=== PATIENT | female | born 1960 | race Caucasian/White ===

== ENCOUNTER 2016-09-17 08:14 | Emergency (ER) | payer BC ==
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
[2016-09-17 09:39] LABS: Hematocrit 39 % (35-47); Hemoglobin 12.7 g/dl (12.0-16.0); Mean Corpuscular HGB Conc 33 g/dl (31-36); Mean Corpuscular Hemoglobin 30 pg (27-31); Mean Corpuscular Volume 91 fL (80-97); Mean Platelet Volume 8 um3 (7.4-10.4); Red Blood Count 4.28 10^6/ul (4.0-5.4); Red Cell Distribution Width 14 % (10.5-15); White Blood Count 5.3 10^3/ul (3.5-10.8)
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
[2016-09-17 09:49] LABS: BUN/Creatinine Ratio 21.7 (8-20); Calcium 8.9 mg/dL (8.6-10.3); EGFR African American 91.1 (>60); EGFR Non-African American 70.9 (>60); Potassium 4.4 mmol/L (3.5-5.0); Total Bilirubin 0.4 mg/dL (0.2-1.0)
[2016-09-17] MEDS ORDERED: Dexamethasone IV* 4 MG/ML 5 ML VIAL (20 MG) IVPB ONE (11:01)
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
--- NOTE | 2016-09-17 11:28 | RAD ---
Indication: Fall, chest pain. 2 views of the chest demonstrate no mediastinal shift. Heart is of normal size and configuration. Lung erazo appear clear. IMPRESSION: No active cardiopulmonary disease is identified.
[2016-09-17 11:34] VITALS: BP 118/96
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
== END 2016-09-17 12:10 | disposition home or self-care (01) ==
LOC: ED 08:14
DX: S12.501A Unspecified nondisplaced fracture of sixth cervical vertebra, initial encounter for closed fracture (principal); S12.600A Unspecified displaced fracture of seventh cervical vertebra, initial encounter for closed fracture; S00.81XA Abrasion of other part of head, initial encounter; R07.9 Chest pain, unspecified; M25.512 Pain in left shoulder; M25.511 Pain in right shoulder; Y93.55 Activity, bike riding; Y92.89 Other specified places as the place of occurrence of the external cause
CPT/HCPCS: 36415; 70450; 71020; 72125; 80053; 85025; 99283; J1100

== ENCOUNTER 2017-12-13 06:26 | Day surgery (SDC) | payer BC ==
[~2017-12-13 06:26] MED LIST: Buffered Lidocaine 0.9% SYRIN* 5 ML/SYR SYRINGE INTRADERM ONE; Famotidine IV* 10 MG/ML 2 ML (20 mg) IV ONE
[2017-12-13] MEDS ORDERED: Clindamycin 900 MG/D5W BAG(*) 900 MG/50 ML BAG IVPB ONE (06:47)
[2017-12-13] MEDS ORDERED: Famotidine IV* 10 MG/ML 2 ML (20 mg) ONE (06:47)
[2017-12-13] MEDS ORDERED: ROPIVACAINE 5 MG/ML 30 ML BTL (0.5%) ONE (07:28)
[2017-12-13] MEDS ORDERED: Lidocaine 1% INJ* 10 MG/ML 30 ML SDV ONE (07:28)
[2017-12-13] MEDS ORDERED: fentaNYL* 50 MCG/ML 2 ML VIAL (100 MCG VIAL) ONE (07:30)
[2017-12-13] MEDS ORDERED: Midazolam* 1 MG/ML 5 ML VIAL (5 MG) ONE (07:30)
[2017-12-13] MEDS ORDERED: DiMENhydriNATE IV* 50 MG/ML VIAL IV PUSH PRN (07:34)
[2017-12-13] MEDS ORDERED: Acetaminophen TAB* 325 MG PO PRN (07:34)
[2017-12-13] MEDS ORDERED: Naloxone* 0.4 MG/ML 1 ML VIAL IV PRN (07:34)
[2017-12-13] MEDS ORDERED: Dexamethasone IV* 4 MG/ML 1 ML (4 MG) ONE (07:48)
[2017-12-13] MEDS ORDERED: Ketorolac INJ* 30 MG/ML 1 ML VIAL ONE (08:30)
[2017-12-13] MEDS ORDERED: Ondansetron INJ* 2 MG/ML VIAL ONE (08:30)
[2017-12-13] MEDS ORDERED: Propofol* 10 MG/ML 20 ML BTL IV PUSH ONE (08:30)
[2017-12-13] MEDS ORDERED: Lidocaine 2% PF * 5 ML VIAL ONE (08:30)
[2017-12-13 09:19] VITALS: BP 92/65
--- NOTE | 2017-12-14 01:22 | OP ---
DATE OF OPERATION: 12/13/17 - [facility] DATE OF : 58 SURGEON: Sharif Espinoza DPM THREAD CHECKER: None. ANESTHESIA: MAC with local. PRE-OP DIAGNOSIS: Painful hallux rigidus, right great toe joint. POST-OP DIAGNOSIS: Painful hallux rigidus, right great toe joint. OPERATIVE PROCEDURE: Cheilectomy, right great toe joint. PATHOLOGY: Degenerative bone. HEMOSTASIS: Pneumatic ankle tourniquet. ESTIMATED BLOOD LOSS: Less than 10 cc. INDICATIONS: The patient with chronic increasing pain stiffness and bone spur proliferation about the right great toe joint with significant decrease in range of motion and pain while walking and wearing shoes. The patient had previous surgery years ago. The pain has returned. She opts for surgery at this time to attempt to decrease the pain, improve range of motion and improve her function. DESCRIPTION OF PROCEDURE: The patient was brought to the operating room and placed on the operating table in supine position. The anesthesia department administered IV sedation and a peripheral nerve block was performed at the right foot with 1:1 mixture of 1% lidocaine plain and 0.5% ropivacaine plain. The right foot was then prepped and draped in the usual fashion. The right foot was exsanguinated with an Esmarch bandage and pneumatic ankle tourniquet was inflated to 250 mmHg about a well-padded right ankle. Attention was directed to the dorsal medial aspect of the right great toe joint where previous surgical scar was noted and this was used as an incision line as well. This was deepened into the subcutaneous tissues, re- establishing tissue planes. There was expected fibrosis with adhesions from previous surgery years ago. Dissection was carried down to the capsule and a linear capsular and periosteal incision was made and freed off the underlying osseous attachments to allow for exposure of the great toe joint. There was noted to be hypertrophic bone at the medial, dorsal and lateral aspect of the great toe joint at both the first metatarsal head as well as the base of the proximal phalanx. Using a rongeur and sagittal saw, hypertrophic bone was resected. This was sent off the field as specimen. Next, the McGlamry elevator was used to free plantar adhesions as there was virtually no motion available at the sesamoid apparatus. This allowed for release of the adhesions and there was noted immediately to be an increase in range of motion. The cartilage surfaces were inspected and the sesamoid apparatus in the plantar aspect of the first metatarsal head grossly had only mild evidence of thinning of the cartilage, however, more central and dorsal, there was partial and full thickness erosions with majority of the damage most dorsal to the joint. This was the portion of the osteophytes, which were resected. A power nicole was used to smooth rough edges. Surgical site was flushed with copious amounts of normal sterile saline. Range of motion noted to be significantly improved. Some hypertrophic synovium and synovitis were resected as well prior to closure and the periosteal and capsular tissues were reapproximated and secured with 2-0 Vicryl , subcutaneous tissues were reapproximated with 4-0 Vicryl, and skin was closed with 5-0 nylon. 12 mg of dexamethasone phosphate was infiltrated about the surgical site. This incision was dressed with Xeroform gauze and a light compressive dressing was applied with 4x4 gauze, Epifanio and light Coban wrap. Pneumatic ankle tourniquet was deflated about the right ankle and prompt hyperemic response noted to all 5 digits of the patient's right foot. Having appeared to be tolerated the procedure and anesthesia well, the patient was transported via cart from the operating room to Recovery in satisfactory condition and capillary refill less than 3 seconds to all digits of the right foot. [id number]/[facility] #: [id number] MTDD
== END 2017-12-13 09:16 | disposition home or self-care (01) ==
LOC: OREAST 06:26
PROVIDERS: ATTEND Podiatrist Foot Surgery
DX: M20.21 Hallux rigidus, right foot (principal); J45.909 Unspecified asthma, uncomplicated
CPT/HCPCS: 88304; 88311; J1100; J1885; J2250; J2405; J2704; J2795; J3010